=== PATIENT | female | born 1945 | race Caucasian/White ===

== ENCOUNTER → 2019-07-04 | Outpatient (CLI) | payer MEDICARE, OTHER | END | disposition home or self-care (01) | LOC: LAB SHORT 08:21 → PLD 08:21 | DX: D03.61 Melanoma in situ of right upper limb, including shoulder (principal) | CPT/HCPCS: 88305 ==

== ENCOUNTER → 2019-08-09 | Outpatient (CLI) | payer MEDICARE, OTHER | END | disposition home or self-care (01) | LOC: LAB SHORT 11:41 → PLD 11:41 | DX: D03.61 Melanoma in situ of right upper limb, including shoulder (principal) | CPT/HCPCS: 88305 ==

== ENCOUNTER → 2021-02-26 | Outpatient (CLI) | payer MEDICARE, OTHER | END | disposition home or self-care (01) | LOC: LAB SHORT 14:26 | DX: L98.8 Other specified disorders of the skin and subcutaneous tissue (principal) | CPT/HCPCS: 88305 ==

== ENCOUNTER → 2021-07-30 | Outpatient (CLI) | payer MEDICARE, OTHER | END | disposition home or self-care (01) | LOC: PLD 14:42 → LAB SHORT 14:42 | DX: L70.0 Acne vulgaris (principal) | CPT/HCPCS: 88305 ==

== ENCOUNTER 2021-09-04 08:22 | Day surgery (SDC) | payer MEDICARE, BC ==
[~2021-09-04] VITALS: Ht 167.6 cm; Wt 98.6 kg
[~2021-09-04 08:22] MED LIST: Aspir 8181 MG PO; ESCI10 PO; FOLI1 PO; LISI20 PO; METO25ER PO; NITR.4SL SL; PRAV20 PO
[2021-09-04] MEDS ORDERED: QUERCETIN DIHYDR1 GM MC (08:44)
[2021-09-04] MEDS ORDERED: Stromectol3 MG PO (08:45)
[2021-09-04] MEDS ORDERED: TERB250 PO (08:45)
--- NOTE | 2021-09-04 08:54 | NUR ---
09/04/21 0854 EDUARDO FOLEY T: 0841 P: 0844 PT READY FOR OR, CALL LIGHT IN HAND.
== END 2021-09-04 10:10 | disposition home or self-care (01) ==
LOC: ORSCSDS 08:22
PROVIDERS: Ophthalmology
PROC: 08RK3JZ Replacement of Left Lens with Synthetic Substitute, Percutaneous Approach (ICD-10-PCS; principal; 2021-09-04 09:30)
DX: H25.12 Age-related nuclear cataract, left eye (principal); I25.2 Old myocardial infarction; Z86.73 Personal history of transient ischemic attack (TIA), and cerebral infarction without residual deficits; I10 Essential (primary) hypertension; E66.9 Obesity, unspecified; Z68.34 Body mass index [BMI] 34.0-34.9, adult; Z79.899 Other long term (current) drug therapy
CPT/HCPCS: A9270; J2001; J2250; J3010; J3301; V2632

== ENCOUNTER 2021-09-25 07:40 | Day surgery (SDC) | payer MEDICARE, BC ==
[~2021-09-25] VITALS: Ht 167.6 cm; Wt 97.1 kg
[~2021-09-25 07:40] MED LIST changes: +QUERCETIN DIHYDR1 GM MC; +Stromectol3 MG PO; +TERB250 PO
--- NOTE | 2021-09-25 07:58 | NUR ---
09/25/21 0758 Indigo Gray AT 0756 PLEDGET AT 0752
== END 2021-09-25 09:32 | disposition home or self-care (01) ==
LOC: ORSCSDS 07:40
PROVIDERS: Ophthalmology
PROC: 08RJ3JZ Replacement of Right Lens with Synthetic Substitute, Percutaneous Approach (ICD-10-PCS; principal; 2021-09-25 09:00)
DX: H25.11 Age-related nuclear cataract, right eye (principal); I10 Essential (primary) hypertension; I25.2 Old myocardial infarction; Z86.73 Personal history of transient ischemic attack (TIA), and cerebral infarction without residual deficits; Z79.899 Other long term (current) drug therapy; Z79.82 Long term (current) use of aspirin; E66.9 Obesity, unspecified; Z68.34 Body mass index [BMI] 34.0-34.9, adult
CPT/HCPCS: J2001; J2250; J3010; J3301; J7040; V2632

== ENCOUNTER → 2024-02-04 | Outpatient (CLI) | payer MEDICARE | END | disposition home or self-care (01) | LOC: LAB 14:12 → LAB SHORT 14:12 | DX: N39.0 Urinary tract infection, site not specified (principal) | CPT/HCPCS: 87077; 87086; 87186 ==

== ENCOUNTER → 2024-02-24 | Outpatient (CLI) | payer MEDICARE | LOC: LAB 11:08 → LAB SHORT 11:08 | DX: N39.0 Urinary tract infection, site not specified (principal) | CPT/HCPCS: 87086 ==